=== PATIENT | female | born 1980 | race Caucasian/White ===

== ENCOUNTER 2017-10-17 22:41 | Emergency (ER) | payer MEDICAID ==
[~2017-10-17] VITALS: Ht 162.6 cm; Wt 68.0 kg
--- NOTE | 2017-10-17 22:51 | NUR ---
PT BIB SELF, AMBULATORY TO ER BED 9 C/O PRESSURE LIKE ABD PAIN AND BURNING LIKE PAIN DURING URINATION X 1 DAY. PT AOX4 RR EVEN AND UNLABORED. NO SOB NAD NOTED. NO NVD NOTED. PT GOWNED AND PLACED ON MONITOR. URINE COLLECTED. CALLED LAB FOR CHEMICAL RESEARCH WORKER.
--- NOTE | 2017-10-17 23:12 | NUR ---
DR. CEBALLOS AT BEDSIDE FOR EVAL.
[2017-10-17 23:37] LABS: APPEARANCE,URINE SL CLOUDY (CLEAR); BILIRUBIN,URINE NEGATIVE (NEGATIVE); BLOOD, URINE 3+ Ery/uL (NEGATIVE); COLOR,URINE YELLOW (YELLOW); KETONES,URINE NEGATIVE (NEGATIVE); LEUKOCYTE ESTERASE ,URINE 2+ (NEGATIVE); NITRITE, URINE NEGATIVE (NEGATIVE); PROTEIN,URINE NEGATIVE (NEGATIVE); UGLUCOSE NEGATIVE (NEGATIVE); UROBILINOGEN,URINE 0.2 EU/dL (0.2)
[2017-10-17 23:49] LABS: BACTERIA,URINE Rare /HPF (None Seen); SQUAMOUS EPITHELIAL CELL,UR Moderate /HPF (None Seen)
[2017-10-18] MEDS ORDERED: NITROFURANTOIN/NITROFURAN MAC 100 MG CAPSULE PO ONE
[2017-10-18] MEDS ORDERED: PHENAZOPYRIDINE HCL 200 MG TABLET PO ONE
[2017-10-18] MEDS ORDERED: NITROFURANTOIN/NITROFURAN MAC 100 MG CAPSULE ONE (00:04)
[2017-10-18] MEDS ORDERED: PHENAZOPYRIDINE HCL 200 MG TABLET ONE (00:04)
[2017-10-18 00:16] VITALS: BP 118/118
== END 2017-10-18 00:10 | disposition home or self-care (01) ==
LOC: ER 22:44
DX: N39.0 Urinary tract infection, site not specified (principal); I10 Essential (primary) hypertension
CPT/HCPCS: 81001; 84703; 99284; A4606; Z7610; 81000-TC; 87086-TC